=== PATIENT | male | born 1975 | race Caucasian/White ===

== ENCOUNTER 2020-06-19 17:09 | Emergency (ER) | payer SELFPAY ==
[~2020-06-19] VITALS: Ht 175.3 cm; Wt 79.4 kg
[2020-06-19 17:14] VITALS: BP 102/58
[2020-06-19 21:30] VITALS: BP 104/59
[2020-06-19] MEDS ORDERED: AMMONIA AROMATIC 1 INHL INH ONE (23:55)
== END 2020-06-20 00:07 | disposition home or self-care (01) ==
LOC: MED 17:09 → EDBD 17:09 → MED 06-20 00:07
DX: F10.129 Alcohol abuse with intoxication, unspecified (principal); Y90.9 Presence of alcohol in blood, level not specified
CPT/HCPCS: 99283